=== PATIENT | female | born 2000 | race Asian ===

== ENCOUNTER 2025-07-12 23:52 | Emergency (ER) | payer OTHER ==
[~2025-07-12] VITALS: Ht 157.5 cm; Wt 59.1 kg
[2025-07-12 23:56] VITALS: TEMP 98.1
[2025-07-13] MEDS: SODIUM CHLORIDE 0.9% 1,000 ML IV ONE (00:25)
[2025-07-13] MEDS: METOCLOPRAMIDE HCL 5 MG/ML 2 ML VIAL IVP ONE (00:26)
[2025-07-13] MEDS: KETOROLAC TROMETHAMINE 30 MG/ML VIAL IVP ONE (00:27)
[2025-07-13] MEDS: ONDANSETRON HCL 4 MG/2 ML VIAL IVP ONE (00:27)
[2025-07-13 00:34] LABS: PLATELET COUNT (AUTO) 381 K/uL (150-450); RED BLOOD CELL COUNT(AUTO) 4.36 MIL/uL (4.00-5.20); RED CELL DISTRIBUTION WIDTH 13.5 % (11.5-14.5); WHITE BLOOD COUNT (AUTO) 15.1 K/uL (4.5-11.0)
[2025-07-13 00:38] LABS: CALCIUM, TOTAL 9.1 mg/dL (8.8-10.5); CREATININE 0.78 mg/dL (0.60-1.30); GLOMERULAR FILTR. RATE CALC > 60 mL/min (>60); GLUCOSE,RANDOM 127 mg/dL (70-110); SODIUM SERUM 135 mmol/L (136-145); UREA NITROGEN, BLOOD 11 mg/dL (7-18)
[2025-07-13 00:42] LABS: ASPARTATE AMINOTRANSFERASE 17.0 U/L (15-37); TOTAL PROTEIN, SERUM 8.2 g/dL (6.4-8.2)
[2025-07-13 02:07] VITALS: BP 100/56; PULSE 60; RESP 14; O2SAT 100
== END 2025-07-13 02:17 | disposition home or self-care (01) ==
LOC: EMS 07-13 00:03
DX: G43.909 Migraine, unspecified, not intractable, without status migrainosus (principal); R11.2 Nausea with vomiting, unspecified; L56.8 Other specified acute skin changes due to ultraviolet radiation
CPT/HCPCS: 99284; 96374; 96375; 96361; 80048; 80076; 83690; 84703; 85025; 36415; J1885; J1200; J2765; J2405; J7030

== ENCOUNTER 2025-07-14 22:42 | Emergency (ER) | payer OTHER ==
[~2025-07-14] VITALS: Ht 157.5 cm; Wt 59.1 kg
[2025-07-14 22:54] VITALS: TEMP 98.2
[2025-07-15] MEDS: IBUPROFEN 400 MG TABLET PO ONE (01:36)
[2025-07-15] MEDS: METOCLOPRAMIDE HCL 10 MG TABLET PO ONE (01:36)
[2025-07-15] MEDS: ACETAMINOPHEN 500 MG TABLET PO ONE (01:36)
[2025-07-15] MEDS: METOCLOPRAMIDE HCL 5 MG/ML 2 ML VIAL IVP ONE (04:17)
[2025-07-15] MEDS: SODIUM CHLORIDE 0.9% 1,000 ML IV ONE (04:17)
[2025-07-15] MEDS: KETOROLAC TROMETHAMINE 30 MG/ML VIAL IVP ONE (04:18)
[2025-07-15] MEDS: DEXAMETHASONE SOD PHOS 4 MG/ML 5 ML VIAL IVP ONE (04:18)
[2025-07-15] MEDS: ACETAMINOPHEN 1000 MG/ISO-OSM 100 ML IV ONE (04:19)
[2025-07-15] MEDS: MAGNESIUM SULFATE 1 GM in DEXTROSE 5%-WATER 50 ML IV ONE (05:47)
[2025-07-15] MEDS ORDERED: METO5TAB95 PO (06:49)
[2025-07-15 07:00] VITALS: BP 96/54; PULSE 73; RESP 16; O2SAT 99
== END 2025-07-15 07:26 | disposition home or self-care (01) ==
LOC: EMS 23:13
DX: G43.909 Migraine, unspecified, not intractable, without status migrainosus (principal); L56.8 Other specified acute skin changes due to ultraviolet radiation
CPT/HCPCS: 99284; 96375; 96365; 96361; J1885; J1100; J8540; J1200; J1630; J2765; J7060; J3475; J7030; J0131

== ENCOUNTER 2025-07-18 03:21 | Emergency (ER) | payer OTHER ==
[~2025-07-18] VITALS: Ht 157.5 cm; Wt 59.1 kg
[~2025-07-18 03:21] MED LIST: METO5TAB95 PO
[2025-07-18 05:44] LABS: PLATELET COUNT (AUTO) 320 K/uL (150-450); RED BLOOD CELL COUNT(AUTO) 4.69 MIL/uL (4.00-5.20); RED CELL DISTRIBUTION WIDTH 13.6 % (11.5-14.5); WHITE BLOOD COUNT (AUTO) 10.2 K/uL (4.5-11.0)
[2025-07-18 05:56] LABS: CALCIUM, TOTAL 9.7 mg/dL (8.8-10.5); CREATININE 0.87 mg/dL (0.60-1.30); GLOMERULAR FILTR. RATE CALC > 60 mL/min (>60); GLUCOSE,RANDOM 127 mg/dL (70-110); SODIUM SERUM 135 mmol/L (136-145); UREA NITROGEN, BLOOD 11 mg/dL (7-18)
[2025-07-18] MEDS: SODIUM CHLORIDE 0.9% 500 ML IV ONE (07:12)
[2025-07-18] MEDS: KETOROLAC TROMETHAMINE 30 MG/ML VIAL IVP ONE (07:13)
[2025-07-18] MEDS: METOCLOPRAMIDE HCL 5 MG/ML 2 ML VIAL IVP ONE (07:13)
[2025-07-18 07:24] VITALS: TEMP 98.6
[2025-07-18] MEDS: ONDANSETRON HCL 4 MG/2 ML VIAL IVP ONE (08:22)
[2025-07-18 10:00] VITALS: BP 112/70; PULSE 74; RESP 17; O2SAT 99
[2025-07-18] MEDS ORDERED: SUMA25TA15 PO (10:46)
[2025-07-18] MEDS ORDERED: METO5TAB95 PO (10:46)
== END 2025-07-18 10:59 | disposition home or self-care (01) ==
LOC: EMS 03:21
DX: G43.909 Migraine, unspecified, not intractable, without status migrainosus (principal); R11.2 Nausea with vomiting, unspecified; N89.8 Other specified noninflammatory disorders of vagina; L56.8 Other specified acute skin changes due to ultraviolet radiation; Z79.899 Other long term (current) drug therapy
CPT/HCPCS: 99284; 96374; 96375; 80048; 84702; 85025; 36415; J1885; J1200; J2765; J2405; J7040